=== PATIENT | male | born 1970 | race Caucasian/White ===

== ENCOUNTER → 2016-12-11 | Outpatient (CLI) | payer OTHER | LOC: KOH-I 13:00 | DX: S83.242D Other tear of medial meniscus, current injury, left knee, subsequent encounter (principal); S82.832D Other fracture of upper and lower end of left fibula, subsequent encounter for closed fracture with routine healing; S83.412D Sprain of medial collateral ligament of left knee, subsequent encounter | CPT/HCPCS: 73721 ==

== ENCOUNTER 2020-08-01 16:22 | Emergency (ER) | payer OTHER ==
[~2020-08-01 16:22] MED LIST: AEROCHAMBER1 EA XX; ALBUTEROL2.5 MG/3 M INH; ASPIRIN EC81 MG PO; AZITHROMYCIN250 MG PO; BACTRIM DS TAB1 EACH PO; BUSPAR 10MG10 MG PO; BUTALB-ACETAMI1 EAC1 PO; CLEOCIN HCL300 MG PO; COZAAR 50MG TAB50 MG PO; CYCLOBENZAPRINE5 MG PO; DOXEPIN HCL10 MG PO; FLONASE 0.05% N16 GM; FUROSEMIDE40 MG PO; HYDROCHLOROTHIA25 MG PO; HYDROCODON-ACE1 EAC4 PO; HYDROXYZINE HCL25 MG PO; IMDUR ER TAB 3030 MG PO; IPRAT-ALBUT 0.5-3 ML NEB; LASIX 40 MG TAB40 MG PO; LASIX40 MG PO; LEVAQUIN500 MG PO; LIPITOR40 MG PO; LOPRESSOR 25 MG25 MG PO; MEDROL DOSEPAK 24 MG PO; MELATONIN5 M2 PO; METFORMIN ER G500 MG PO; MIRTAZAPINE7.5 MG PO; PEPCID20 MG PO; PERCOCET 5/325 T1 EA PO; PREDNISONE10 MG PO; PREDNISONE20 MG PO; PROVENTIL HFA6.7 GM INH; RIZATRIPTAN10 MG PO; SYMBICORT 16010.2 GM INH; TESSALON PERLE100 MG PO; VENTOLIN HFA 66.7 GM INH; WELLBUTRIN XL300 M1 PO; ZESTRIL2.5 MG PO; ZOLOFT50 MG PO; ZYRTEC10 MG PO
[2020-08-01 16:40] LABS: HEMOGLOBIN 12.9 gm/dl (14.0-17.5); RED BLOOD COUNT 4.37 M/UL (4.20-5.50); WHITE BLOOD COUNT 9.4 K/UL (4.5-11.0)
[2020-08-01 17:14] LABS: BUN/CREATININE RATIO 14 (0-10)
[2020-08-01] MEDS ORDERED: PREDNISONE50 MG PO (20:37)
[2020-08-01] MEDS ORDERED: LEVOFLOXACIN750 MG PO (20:37)
[2020-12-31] MEDS ORDERED: NICOTINE PATCH1 EAC2 TD (18:36)
== END 2020-08-01 21:05 | disposition home or self-care (01) ==
LOC: ER1 16:22
PROVIDERS: Emergency Medicine
DX: J44.1 Chronic obstructive pulmonary disease with (acute) exacerbation (principal); E11.9 Type 2 diabetes mellitus without complications; I50.9 Heart failure, unspecified; F17.200 Nicotine dependence, unspecified, uncomplicated; Z88.1 Allergy status to other antibiotic agents; Z20.822 Contact with and (suspected) exposure to COVID-19
CPT/HCPCS: 36600; 71045; 80053; 82550; 82553; 82803; 83605; 83874; 83880; 84484; 85025; 85379; 85610; 85730; 87040; 93005; 96365; 96375; 99285; J1956; J2930; U0002

== ENCOUNTER 2020-08-29 02:51 | Emergency (ER) | payer OTHER ==
[~2020-08-29 02:51] MED LIST changes: +LEVOFLOXACIN750 MG PO; +PREDNISONE50 MG PO
[2020-08-29 03:09] LABS: RED BLOOD COUNT 4.92 M/UL (4.20-5.50); WHITE BLOOD COUNT 13.2 K/UL (4.5-11.0)
[2020-08-29 03:31] LABS: BUN/CREATININE RATIO 12 (0-10)
[2020-08-29] MEDS ORDERED: ACETAMINOPHEN500 MG PO (03:45)
[2020-08-29] MEDS ORDERED: LODINE CAP 300300 MG PO (03:46)
[2020-08-29] MEDS ORDERED: CLEOCIN HCL150 MG PO (03:46)
[2020-12-31] MEDS ORDERED: NICOTINE PATCH1 EAC2 TD (18:36)
[2021-02-12] MEDS ORDERED: LEVOFLOXACIN500 MG PO (10:36)
== END 2020-08-29 03:55 | disposition home or self-care (01) ==
LOC: ER1 02:51
PROVIDERS: Physician Assistant
DX: S80.812A Abrasion, left lower leg, initial encounter (principal); L03.116 Cellulitis of left lower limb; I11.0 Hypertensive heart disease with heart failure; I50.9 Heart failure, unspecified; J44.9 Chronic obstructive pulmonary disease, unspecified; F17.210 Nicotine dependence, cigarettes, uncomplicated; Z88.1 Allergy status to other antibiotic agents; W22.8XXA Striking against or struck by other objects, initial encounter
CPT/HCPCS: 36415; 80053; 85025; 85652; 86140; 96374; 99283

== ENCOUNTER 2020-09-26 22:38 | Emergency (ER) | payer OTHER ==
[~2020-09-26 22:38] MED LIST changes: +ACETAMINOPHEN500 MG PO; +CLEOCIN HCL150 MG PO; +LODINE CAP 300300 MG PO
[2020-09-26 23:33] LABS: HEMOGLOBIN 16.2 gm/dl (14.0-17.5); RED BLOOD COUNT 5.37 M/UL (4.20-5.50)
[2020-09-26 23:56] LABS: BUN/CREATININE RATIO 16 (0-10)
[2020-09-27] MEDS ORDERED: CLEOCIN HCL150 MG PO (02:40)
[2021-02-12] MEDS ORDERED: LEVOFLOXACIN500 MG PO (10:36)
== END 2020-09-27 03:20 | disposition home or self-care (01) ==
LOC: ER1 22:38
PROVIDERS: Physician Assistant
DX: L03.116 Cellulitis of left lower limb (principal); R79.1 Abnormal coagulation profile; I50.9 Heart failure, unspecified; J44.9 Chronic obstructive pulmonary disease, unspecified; F17.210 Nicotine dependence, cigarettes, uncomplicated; Z88.1 Allergy status to other antibiotic agents
CPT/HCPCS: 36415; 71045; 80053; 81001; 82550; 82553; 83874; 83880; 84484; 85025; 85379; 85610; 85730; 96365; 96372; 99285; J1650; Q9967

== ENCOUNTER 2020-10-05 16:11 | Emergency (ER) | payer OTHER ==
[2020-10-05 20:02] LABS: HEMOGLOBIN 16.8 gm/dl (14.0-17.5); RED BLOOD COUNT 5.59 M/UL (4.20-5.50); WHITE BLOOD COUNT 13.7 K/UL (4.5-11.0)
[2020-10-05 20:23] LABS: BUN/CREATININE RATIO 17 (0-10)
[2020-10-05] MEDS ORDERED: TORADOL 10 MG T10 MG PO (21:01)
[2021-02-12] MEDS ORDERED: LEVOFLOXACIN500 MG PO (10:36)
== END 2020-10-05 22:36 | disposition home or self-care (01) ==
LOC: ER1 16:11
PROVIDERS: Physician Assistant Medical
DX: S81.802D Unspecified open wound, left lower leg, subsequent encounter (principal); J44.9 Chronic obstructive pulmonary disease, unspecified; F17.210 Nicotine dependence, cigarettes, uncomplicated; Z86.16 Personal history of COVID-19; Z88.1 Allergy status to other antibiotic agents
CPT/HCPCS: 71046; 80053; 85025; 85652; 86140; 94664; 94760; 96372; 99284; J1885

== ENCOUNTER → 2020-10-13 | Outpatient (CLI) | payer OTHER ==
[~2020-10-13] MED LIST changes: +BACTRIM 400-801 EACH PO; +CRESTOR 10 MG T10 MG PO; +DOXYCYCLINE HY100 MG PO; +GABAPENTIN100 MG PO; +GLUCOPHAGE 500500 MG PO; +HUMALOG 10100 UNITS/ SC; +IBUPROFEN800 MG PO; +IMITREX50 MG PO; +IPRAT-ALBUT 0.5-3 ML INH; +ISOSORBIDE MONO60 MG PO; +KLONOPIN TAB 00.5 MG PO; +KLONOPIN0.5 MG PO; +LANTUS INS100 UTS/M1 SQ; +LEVOFLOXACIN500 MG PO; +LEXAPRO TAB 1010 MG PO; +METOPROLOL SUCC25 MG PO; +MINIPRES CAP 2 M2 MG PO; +MIRTAZAPINE45 MG PO; +MYCOSTATIN100000 UTS PO; +NICOTINE PATCH1 EACH TOP; +PRAZOSIN HCL2 MG PO; +SINEQUAN CAP 1010 MG PO; +SPIRIVA18 MCG INH; +TORADOL 10 MG T10 MG PO
== END ==
LOC: WCC 07:34
PROC: 2W1RX6Z Compression of Left Lower Leg using Pressure Dressing (ICD-10-PCS; principal; 2020-10-13)
PROC: 0JBP0ZZ Excision of Left Lower Leg Subcutaneous Tissue and Fascia, Open Approach (ICD-10-PCS; principal; 2020-10-13)
DX: I87.312 Chronic venous hypertension (idiopathic) with ulcer of left lower extremity (principal); L97.822 Non-pressure chronic ulcer of other part of left lower leg with fat layer exposed; I96 Gangrene, not elsewhere classified; E66.01 Morbid (severe) obesity due to excess calories; R73.03 Prediabetes; I11.0 Hypertensive heart disease with heart failure; I50.810 Right heart failure, unspecified; J44.9 Chronic obstructive pulmonary disease, unspecified; G47.30 Sleep apnea, unspecified; F17.210 Nicotine dependence, cigarettes, uncomplicated; Z88.1 Allergy status to other antibiotic agents; Z68.35 Body mass index [BMI] 35.0-35.9, adult
CPT/HCPCS: G0463

== ENCOUNTER → 2020-10-17 | Outpatient (CLI) | payer OTHER | LOC: WCC 12:01 | PROC: 2W1RX6Z Compression of Left Lower Leg using Pressure Dressing (ICD-10-PCS; principal; 2020-10-17) | DX: I96 Gangrene, not elsewhere classified (principal); L97.822 Non-pressure chronic ulcer of other part of left lower leg with fat layer exposed; J44.9 Chronic obstructive pulmonary disease, unspecified; G47.30 Sleep apnea, unspecified; I11.0 Hypertensive heart disease with heart failure; I50.9 Heart failure, unspecified ==

== ENCOUNTER → 2020-10-20 | Outpatient (CLI) | payer OTHER | LOC: WCC 08:53 | PROC: 2W1RX6Z Compression of Left Lower Leg using Pressure Dressing (ICD-10-PCS; principal; 2020-10-20) | PROC: 0JBP0ZZ Excision of Left Lower Leg Subcutaneous Tissue and Fascia, Open Approach (ICD-10-PCS; principal; 2020-10-20) | DX: I87.312 Chronic venous hypertension (idiopathic) with ulcer of left lower extremity (principal); L97.822 Non-pressure chronic ulcer of other part of left lower leg with fat layer exposed; I96 Gangrene, not elsewhere classified; I87.2 Venous insufficiency (chronic) (peripheral); R73.03 Prediabetes; I11.0 Hypertensive heart disease with heart failure; I50.810 Right heart failure, unspecified; J44.9 Chronic obstructive pulmonary disease, unspecified; G47.30 Sleep apnea, unspecified; F17.210 Nicotine dependence, cigarettes, uncomplicated; E66.01 Morbid (severe) obesity due to excess calories; Z68.35 Body mass index [BMI] 35.0-35.9, adult ==

== ENCOUNTER → 2020-10-25 | Outpatient (CLI) | payer OTHER | LOC: WCC 14:34 | DX: Z53.9 Procedure and treatment not carried out, unspecified reason (principal) ==

== ENCOUNTER 2020-11-08 17:00 | Emergency (ER) | payer OTHER ==
[~2020-11-08 17:00] MED LIST changes: -BACTRIM 400-801 EACH PO; -CRESTOR 10 MG T10 MG PO; -DOXYCYCLINE HY100 MG PO; -GABAPENTIN100 MG PO; -GLUCOPHAGE 500500 MG PO; -HUMALOG 10100 UNITS/ SC; -IBUPROFEN800 MG PO; -IMITREX50 MG PO; -IPRAT-ALBUT 0.5-3 ML INH; -ISOSORBIDE MONO60 MG PO; -KLONOPIN TAB 00.5 MG PO; -KLONOPIN0.5 MG PO; -LANTUS INS100 UTS/M1 SQ; -LEVOFLOXACIN500 MG PO; -LEXAPRO TAB 1010 MG PO; -METOPROLOL SUCC25 MG PO; -MINIPRES CAP 2 M2 MG PO; -MIRTAZAPINE45 MG PO; -MYCOSTATIN100000 UTS PO; -NICOTINE PATCH1 EACH TOP; -PRAZOSIN HCL2 MG PO; -SINEQUAN CAP 1010 MG PO; -SPIRIVA18 MCG INH
[2020-11-08 19:10] LABS: HEMOGLOBIN 15.3 gm/dl (14.0-17.5); RED BLOOD COUNT 5.22 M/UL (4.20-5.50); WHITE BLOOD COUNT 12.4 K/UL (4.5-11.0)
[2020-11-08 19:34] LABS: BUN/CREATININE RATIO 16 (0-10)
[2021-02-12] MEDS ORDERED: LEVOFLOXACIN500 MG PO (10:36)
== END 2020-11-08 21:55 | disposition home or self-care (01) ==
LOC: ER1 17:00
PROVIDERS: Student in an Organized Health Care Education/Training Program
DX: J44.9 Chronic obstructive pulmonary disease, unspecified (principal); R10.9 Unspecified abdominal pain; I50.9 Heart failure, unspecified; F17.210 Nicotine dependence, cigarettes, uncomplicated
CPT/HCPCS: 71046; 80053; 81001; 82550; 82553; 83605; 83690; 83874; 83880; 84484; 85025; 93005; 94664; 99285

== ENCOUNTER 2020-12-31 07:38 | Inpatient (IN) | payer OTHER ==
[~2020-12-31] VITALS: Ht 177.8 cm; Wt 117.9 kg
[2020-12-31 08:08] LABS: HEMOGLOBIN 13.8 gm/dl (14.0-17.5); RED BLOOD COUNT 4.67 M/UL (4.20-5.50); WHITE BLOOD COUNT 14.1 K/UL (4.5-11.0)
[2020-12-31 08:31] LABS: BUN/CREATININE RATIO 16 (0-10)
[2020-12-31] MEDS ORDERED: METOPROLOL SUCC25 MG PO (18:32)
[2020-12-31] MEDS ORDERED: MIRTAZAPINE45 MG PO (18:33)
[2020-12-31] MEDS ORDERED: KLONOPIN0.5 MG PO (18:33)
[2020-12-31] MEDS ORDERED: ISOSORBIDE MONO60 MG PO (18:34)
[2020-12-31] MEDS ORDERED: SPIRIVA18 MCG INH (18:35)
[2020-12-31] MEDS ORDERED: BUSPAR 10MG10 MG PO (18:35)
[2020-12-31] MEDS ORDERED: CRESTOR 10 MG T10 MG PO (18:35)
[2020-12-31] MEDS ORDERED: PRAZOSIN HCL2 MG PO (18:36)
[2020-12-31] MEDS ORDERED: IBUPROFEN800 MG PO (18:37)
[2021-01-01 06:16] LABS: HEMOGLOBIN 13.2 gm/dl (14.0-17.5); RED BLOOD COUNT 4.46 M/UL (4.20-5.50)
[2021-01-01 06:22] LABS: WHITE BLOOD COUNT 26.7 K/UL (4.5-11.0)
--- NOTE | 2021-01-01 13:53 | NUR ---
RECHECKED PATIENTS BLOOD GLUCOSE. AGAIN OVER 600. PHYSICIAN NOTIFIED. ORDERED ANOTHER 15 UNITS OF INSULINE. ALSO ORDERED NORMAL SALINE 2LITERS INFUSED AT 125ML/HOUR.
--- NOTE | 2021-01-01 13:56 | NUR ---
PATIENT EARLIER THIS MORNING INSISTED ON DRINKING A MOUNTAIN DEW SOFT DRINK. THE NURSE EDUCATED THE PATIENT ABOUT THE DANGERS AND TRIED TO GET THE PATIENT TO NOT DRINK THE SOFT DRINK WHEN HIS BLOOD GLUCOSE HAD BEEN SO HIGH (664 AT 0730 ON MORNING LABS). PATIENT INSISNTED AND STATED HE WOULD JUST GO GET ANOTHER ONE IF THE NURSE DIDN'T LET HIM HAVE THAT ONE.
[2021-01-02 06:14] LABS: HEMOGLOBIN 12.2 gm/dl (14.0-17.5); RED BLOOD COUNT 4.16 M/UL (4.20-5.50); WHITE BLOOD COUNT 22.1 K/UL (4.5-11.0)
[2021-01-02 08:31] LABS: BUN/CREATININE RATIO 23 (0-10)
--- NOTE | 2021-01-02 18:32 | NUR ---
PATIENT ACCIDENTALLY PULLED OUT HIS IV. RESOURCE THE DAY BEFORE MADE SEVERAL ATTMPTS BEFORE IV WAS SUCCESSFULLY STARTED. THERE IS NO RESOURCE NURSE TODAY. TWO DIFFERENT EXPERIENCED NURSES ON THE FLOOR MADE SEVERAL ATTEMPTS THIS AFTERNOON TO START A NEW IV. PROVIDER IS AWARE THAT CURRENTLY PATIENT HAS NO IV. MELODY HAS BEEN CALLED TWICE ABOUT THE SITUATION AND STATED SHE WOULD CALL ICU AND ER AND TRY TO HAVE SOMEONE PLACE AN ULTRA SOUND GIDED IV CANULA.
[2021-01-03 08:03] LABS: RED BLOOD COUNT 4.43 M/UL (4.20-5.50)
[2021-01-03 08:04] LABS: WHITE BLOOD COUNT 15.8 K/UL (4.5-11.0)
[2021-01-03 11:50] LABS: HEMOGLOBIN 12.1 gm/dl (14.0-17.5); RED BLOOD COUNT 4.09 M/UL (4.20-5.50); WHITE BLOOD COUNT 13.8 K/UL (4.5-11.0)
[2021-01-05 04:00] LABS: HEMOGLOBIN 12.8 gm/dl (14.0-17.5); RED BLOOD COUNT 4.36 M/UL (4.20-5.50); WHITE BLOOD COUNT 16.4 K/UL (4.5-11.0)
[2021-01-06 03:39] LABS: HEMOGLOBIN 13.1 gm/dl (14.0-17.5); RED BLOOD COUNT 4.43 M/UL (4.20-5.50); WHITE BLOOD COUNT 15.4 K/UL (4.5-11.0)
[2021-01-06 04:20] LABS: BUN/CREATININE RATIO 24 (0-10)
[2021-01-07 06:31] LABS: BUN/CREATININE RATIO 28 (0-10)
[2021-01-08 06:10] LABS: HEMOGLOBIN 13.3 gm/dl (14.0-17.5); RED BLOOD COUNT 4.46 M/UL (4.20-5.50); WHITE BLOOD COUNT 17.6 K/UL (4.5-11.0)
[2021-01-08 06:55] LABS: BUN/CREATININE RATIO 28 (0-10)
[2021-01-09 06:39] LABS: BUN/CREATININE RATIO 29 (0-10)
[2021-01-09] MEDS ORDERED: KLONOPIN0.5 MG PO (15:37)
[2021-01-11] MEDS ORDERED: PERCOCET 5/325 T1 EA PO (09:06)
[2021-01-11] MEDS ORDERED: GABAPENTIN100 MG PO (09:06)
[2021-01-11] MEDS ORDERED: HUMALOG 10100 UNITS/ SC (09:06)
[2021-01-11] MEDS ORDERED: HYDROXYZINE HCL25 MG PO (09:06)
[2021-01-11] MEDS ORDERED: MYCOSTATIN100000 UTS PO (09:06)
[2021-01-11] MEDS ORDERED: FUROSEMIDE40 MG PO (09:06)
[2021-01-11] MEDS ORDERED: LANTUS INS100 UTS/M1 SQ (09:06)
[2021-01-11 09:29] LABS: HEMOGLOBIN 13.7 gm/dl (14.0-17.5); RED BLOOD COUNT 4.56 M/UL (4.20-5.50); WHITE BLOOD COUNT 17.3 K/UL (4.5-11.0)
[2021-01-11] MEDS ORDERED: DOXYCYCLINE HY100 MG PO (11:00)
--- NOTE | 2021-01-11 13:57 | NUR ---
REPORT CALLED TO [facility] AT THIS TIME.
--- NOTE | 2021-01-11 16:19 | NUR ---
EMS ARRIVED TO [place] OF FACULTY PATIENT AND PATIENT WAS IN THE SHOWER. EMS THEN REFUSED TO TAKE PATIENT BEACUASE THE PATIENT CAN AMBULATE. PROVIDER MADE AWARE. UTILITY LOCATOR MADE AWARE. CM MADE AWARE. CM STATES THAT THEY WILL CALL [facility] AND SEE IF THEY CAN GET HIM A RIDE THAT WAY.
[2021-02-12] MEDS ORDERED: LEVOFLOXACIN500 MG PO (10:36)
== END 2021-01-11 22:04 | DRG 177 ==
LOC: ER1 07:38 → CDU 12:34 → MED SURG 4 12:34
PROVIDERS: Emergency Medicine; Internal Medicine; Physician Assistant; ADMIT Internal Medicine
DX: J69.0 Pneumonitis due to inhalation of food and vomit (principal); J96.01 Acute respiratory failure with hypoxia; J96.02 Acute respiratory failure with hypercapnia; J44.1 Chronic obstructive pulmonary disease with (acute) exacerbation; N17.9 Acute kidney failure, unspecified; J44.0 Chronic obstructive pulmonary disease with (acute) lower respiratory infection; J96.11 Chronic respiratory failure with hypoxia; E66.01 Morbid (severe) obesity due to excess calories; D72.829 Elevated white blood cell count, unspecified; G47.33 Obstructive sleep apnea (adult) (pediatric); I11.0 Hypertensive heart disease with heart failure; I50.9 Heart failure, unspecified; E11.65 Type 2 diabetes mellitus with hyperglycemia; Z79.4 Long term (current) use of insulin; Z86.16 Personal history of COVID-19; Z72.0 Tobacco use; Z88.8 Allergy status to other drugs, medicaments and biological substances; Z80.1 Family history of malignant neoplasm of trachea, bronchus and lung; Z68.35 Body mass index [BMI] 35.0-35.9, adult
CPT/HCPCS: 36415; 36600; 71045; 71046; 71260; 74230; 80048; 80053; 81001; 82550; 82553; 82803; 82962; 83036; 83605; 83690; 83735; 83880; 84484; 85025; 85027; 87040; 92610; 92611-GN; 94640; 94664; 94760; 96374; 97116-GP-CQ; 97161; 99285; J0456; J1650; J1940; J2543; J2920; J2930; J7030; Q9967; U0002

== ENCOUNTER 2021-02-15 22:10 | Observation (INO) | payer OTHER ==
[~2021-02-15] VITALS: Ht 177.8 cm; Wt 122.5 kg
[~2021-02-15 22:10] MED LIST changes: +CRESTOR 10 MG T10 MG PO; +DOXYCYCLINE HY100 MG PO; +GABAPENTIN100 MG PO; +HUMALOG 10100 UNITS/ SC; +IBUPROFEN800 MG PO; +ISOSORBIDE MONO60 MG PO; +KLONOPIN0.5 MG PO; +LANTUS INS100 UTS/M1 SQ; +LEVOFLOXACIN500 MG PO; +METOPROLOL SUCC25 MG PO; +MIRTAZAPINE45 MG PO; +MYCOSTATIN100000 UTS PO; +PRAZOSIN HCL2 MG PO; +SPIRIVA18 MCG INH
[2021-02-15 23:02] LABS: RED BLOOD COUNT 4.26 M/UL (4.20-5.50); WHITE BLOOD COUNT 12.4 K/UL (4.5-11.0)
[2021-02-15 23:22] LABS: BUN/CREATININE RATIO 15 (0-10)
[2021-02-16] MEDS ORDERED: HYDROXYZINE HCL25 MG PO ×2 (06:33→09:56)
[2021-02-16] MEDS ORDERED: GLUCOPHAGE 500500 MG PO (09:56)
[2021-02-16] MEDS ORDERED: KLONOPIN TAB 00.5 MG PO (09:58)
[2021-02-16] MEDS ORDERED: IPRAT-ALBUT 0.5-3 ML INH (09:58)
[2021-02-16] MEDS ORDERED: MINIPRES CAP 2 M2 MG PO (09:59)
[2021-02-16] MEDS ORDERED: GABAPENTIN100 MG PO (10:00)
[2021-02-16] MEDS ORDERED: PERCOCET 5/325 T1 EA PO (10:01)
[2021-02-16] MEDS ORDERED: SINEQUAN CAP 1010 MG PO (10:35)
[2021-02-16] MEDS ORDERED: LEXAPRO TAB 1010 MG PO (10:37)
[2021-02-16] MEDS ORDERED: IMITREX50 MG PO (10:38)
[2021-02-16] MEDS ORDERED: IBUPROFEN800 MG PO (10:39)
[2021-02-16] MEDS ORDERED: VENTOLIN HFA 66.7 GM INH (10:43)
[2021-02-16] MEDS ORDERED: BACTRIM 400-801 EACH PO (15:32)
--- NOTE | 2021-02-16 16:16 | NUR ---
ROOM AIR SAT 94%
[2021-02-16] MEDS ORDERED: NICOTINE PATCH1 EACH TOP (18:36)
--- NOTE | 2021-02-16 20:20 | NUR ---
UPON COMPLETION OF IV VANCOMYCIN AROUND 2014, THE PATIENT BECAME VERY UPSET ABOUT BEING DISCHARGED HOME. HE STATES HE HAS ABDOMINAL PAIN AND DIARRHEA. I DID WITNESS EPISODE OF DIARRHEA. HE STATED HE WOULD LIKE TO SPEAK TO ADMINISTRATION. CALL OUT TO HOSPITALIST. HAULPAK DRIVER MAY NOTIFIED. HOUSE STATED IT WOULD BE UP TO THE PHYSICIAN.
--- NOTE | 2021-02-16 20:30 | NUR ---
DISCUSSED WITH DR HU AND SHE STATED TO HOLD PATIENT DISCHARGE AND COLLECT A GI BIOFIRE. ALL INFO RELAYED TO PATIENT WITH GOOD UNDERSTANDING NOTED.
[2021-02-17 04:22] LABS: HEMOGLOBIN 12.8 gm/dl (14.0-17.5); RED BLOOD COUNT 4.26 M/UL (4.20-5.50); WHITE BLOOD COUNT 11.8 K/UL (4.5-11.0)
--- NOTE | 2021-02-17 13:44 | NUR ---
Upon patients request he has been on 02 via nasal cannula at 3l lters since he has been here. His sitting room air sat it 90%. Upon walking patient down the [place]aines and back it dropped down to 78%. It took one minute to get back to 90% without supllmenetal 02. The patient has supplemental 02 at home, but no one to bring it to him for travel. He will have acess to the 02 if he needs it upon arrival to his home. patient was given prtable pulse oximeter. I discussed all this with Dr. Bloom and she said to go ahead and diischarge him.
== END 2021-02-17 18:11 | disposition home or self-care (01) ==
LOC: ER1 22:10 → MED SURG 4 02-16 08:31 → CDU 02-16 08:31 → MED SURG 4 02-16 09:25
PROVIDERS: Physician Assistant; Physician Assistant Medical; ADMIT Internal Medicine
DX: I87.8 Other specified disorders of veins (principal); L03.116 Cellulitis of left lower limb; I89.0 Lymphedema, not elsewhere classified; J44.9 Chronic obstructive pulmonary disease, unspecified; J96.11 Chronic respiratory failure with hypoxia; F41.9 Anxiety disorder, unspecified; G47.33 Obstructive sleep apnea (adult) (pediatric); I11.0 Hypertensive heart disease with heart failure; I50.32 Chronic diastolic (congestive) heart failure; R94.31 Abnormal electrocardiogram [ECG] [EKG]; Z79.82 Long term (current) use of aspirin; Z79.899 Other long term (current) drug therapy; Z88.1 Allergy status to other antibiotic agents; Z91.19 Patient's noncompliance with other medical treatment and regimen; Z20.822 Contact with and (suspected) exposure to COVID-19; Z87.891 Personal history of nicotine dependence
CPT/HCPCS: 36415; 71045; 80048; 80053; 82550; 82553; 83735; 83874; 83880; 84484; 85025; 85027; 87070; 87077; 87186; 87205; 93005; 93971; 94664; 96374; 96375; 96376; 99285; G0378; J3370; J7070; U0002

== ENCOUNTER 2021-03-12 11:20 | Emergency (ER) | payer OTHER ==
[~2021-03-12 11:20] MED LIST changes: +BACTRIM 400-801 EACH PO; +GLUCOPHAGE 500500 MG PO; +IMITREX50 MG PO; +IPRAT-ALBUT 0.5-3 ML INH; +KLONOPIN TAB 00.5 MG PO; +LEXAPRO TAB 1010 MG PO; +MINIPRES CAP 2 M2 MG PO; +NICOTINE PATCH1 EACH TOP; +SINEQUAN CAP 1010 MG PO
[2021-03-12 13:01] LABS: HEMOGLOBIN 13.8 gm/dl (14.0-17.5); RED BLOOD COUNT 4.85 M/UL (4.20-5.50); WHITE BLOOD COUNT 13.4 K/UL (4.5-11.0)
[2021-03-12 13:07] LABS: BUN/CREATININE RATIO 14 (0-10)
[2021-03-12] MEDS ORDERED: MUPIROCIN30 GM TP (13:36)
[2021-03-12] MEDS ORDERED: BACTRIM DS TAB1 EACH PO (13:36)
== END 2021-03-12 14:12 | disposition home or self-care (01) ==
LOC: ER1 11:20
PROVIDERS: Emergency Medicine
DX: L03.115 Cellulitis of right lower limb (principal); L03.116 Cellulitis of left lower limb; I10 Essential (primary) hypertension; J44.9 Chronic obstructive pulmonary disease, unspecified; Z88.1 Allergy status to other antibiotic agents
CPT/HCPCS: 80053; 83605; 85025; 85652; 86140; 99283

== ENCOUNTER 2021-04-27 22:38 | Observation (INO) | payer OTHER ==
[~2021-04-27] VITALS: Ht 177.8 cm; Wt 122.5 kg
[~2021-04-27 22:38] MED LIST changes: -CRESTOR 10 MG T10 MG PO; -KLONOPIN TAB 00.5 MG PO; -METOPROLOL SUCC25 MG PO; -MIRTAZAPINE45 MG PO; +MUPIROCIN30 GM TP
[2021-04-27 23:15] LABS: HEMOGLOBIN 14.3 gm/dl (14.0-17.5); RED BLOOD COUNT 4.99 M/UL (4.20-5.50); WHITE BLOOD COUNT 13.5 K/UL (4.5-11.0)
[2021-04-27 23:45] LABS: BUN/CREATININE RATIO 12 (0-10)
[2021-04-28] MEDS ORDERED: BACTRIM DS TAB1 EACH PO (08:52)
[2021-04-28] MEDS ORDERED: IPRAT-ALBUT 0.5-3 ML INH (08:58)
[2021-04-28] MEDS ORDERED: IBU800 MG PO (09:10)
[2021-04-28] MEDS ORDERED: HYDROXYZINE HCL25 MG PO (09:56)
[2021-04-28] MEDS ORDERED: KLONOPIN TAB 00.5 MG PO (09:58)
[2021-04-28] MEDS ORDERED: METOPROLOL TART25 MG PO (18:32)
[2021-04-28] MEDS ORDERED: MIRTAZAPINE45 MG PO (18:33)
[2021-04-28] MEDS ORDERED: CRESTOR20 MG PO (18:35)
--- NOTE | 2021-04-29 03:00 | NUR ---
PT ORDERED FOOD FROM [employer] AND HAD DELIVERED. AMBULATED TO FRONT OF HOSPITAL TO GET FOOD WITH WHEELCHAIR FOR WALKING. PTS IV IN RAC CAME LOOSE AND WAS BLEEDING. NEW IV WAS PLACED IN RHAND. PT CURRENTLY SLEEPING IN CHAIR IN ROOM STATES "I SLEEP IN CHAIR AT HOME ITS MORE COMFORTABLE" THIS RN EDUCATED PT ON ELEVATING LEGS TO REDUCE SWELLING. RN REDRESSED BOTH LEGS WITH GAUZE KERLIX. NO OTHER NEEDS FROM RN AT THIS TIME WCTM
[2021-04-29 07:34] LABS: HEMOGLOBIN 14.6 gm/dl (14.0-17.5); RED BLOOD COUNT 4.91 M/UL (4.20-5.50); WHITE BLOOD COUNT 10.7 K/UL (4.5-11.0)
[2021-04-29 08:22] LABS: BUN/CREATININE RATIO 20 (0-10)
[2021-04-29] MEDS ORDERED: GLUCOPHAGE 500500 MG PO (10:05)
[2021-04-29] MEDS ORDERED: DIABETA 2.5 MG2.5 MG PO (10:05)
[2021-04-29] MEDS ORDERED: GLUCAGEN1 MG/1 ML IM (10:05)
[2021-04-29] MEDS ORDERED: GLUTOSE 1537.5 GM PO (10:05)
[2021-04-29] MEDS ORDERED: BACTRIM DS TAB1 EACH PO (10:05)
[2021-04-29] MEDS ORDERED: GLUCOTROL 10 MG10 MG PO (11:40)
--- NOTE | 2021-04-29 12:48 | NUR ---
PTS BLOOD SUGAR IS HIGH, DR. BEY NOTIFIED AND STATES GIVE LANTUS 25 UNITS ONE TIME DOSE AND 10 UNITS HUMALOG AND RECHECK IN 2 HOURS. KRIS CARPENTER STATES PT CAN BE DISCHARGED HOME WHEN BLOOD SUGAR IS IN 200'S RANGE.
--- NOTE | 2021-04-29 17:35 | NUR ---
REPORTED TO DR BEY PTS BLOOD SUGAR IS 319. DR. BEY STATES PT CAN GO HOME AND FOLLOW UP WITH FAMILY MD IN AM FOR FURTHER MANAGEMENT.
== END 2021-04-29 18:23 | disposition home or self-care (01) ==
LOC: ER1 22:38 → CDU 04-28 02:02 → M/S 04-28 02:02 → MED SURG 4 04-28 08:53 → M/S 04-28 17:04
PROVIDERS: Physician Assistant; Physician Assistant Medical; ADMIT Internal Medicine
DX: I87.8 Other specified disorders of veins (principal); L03.116 Cellulitis of left lower limb; L03.115 Cellulitis of right lower limb; R59.1 Generalized enlarged lymph nodes; E11.9 Type 2 diabetes mellitus without complications; I11.0 Hypertensive heart disease with heart failure; I50.22 Chronic systolic (congestive) heart failure; J44.9 Chronic obstructive pulmonary disease, unspecified; J96.11 Chronic respiratory failure with hypoxia; J96.12 Chronic respiratory failure with hypercapnia; E66.2 Morbid (severe) obesity with alveolar hypoventilation; G89.29 Other chronic pain; F17.200 Nicotine dependence, unspecified, uncomplicated; Z91.19 Patient's noncompliance with other medical treatment and regimen; Z20.822 Contact with and (suspected) exposure to COVID-19; Z88.1 Allergy status to other antibiotic agents; Z79.82 Long term (current) use of aspirin; Z79.899 Other long term (current) drug therapy
CPT/HCPCS: 71045; 80048; 80053; 82550; 82553; 82962; 83036; 83605; 83735; 83874; 83880; 84484; 85025; 85027; 87040; 93005; 94664; 94760; 96374; 96375; 96376; 99285; G0378; J1940; J3370; J7070; Q9967; U0002

== ENCOUNTER 2021-06-07 17:23 | Inpatient (IN) | payer OTHER ==
[~2021-06-07] VITALS: Ht 177.8 cm; Wt 122.5 kg
[~2021-06-07 17:23] MED LIST changes: +CRESTOR20 MG PO; +DIABETA 2.5 MG2.5 MG PO; +GLUCAGEN1 MG/1 ML IM; +GLUCOTROL 10 MG10 MG PO; +GLUTOSE 1537.5 GM PO; +IBU800 MG PO; +KLONOPIN TAB 00.5 MG PO; +METOPROLOL TART25 MG PO; +MIRTAZAPINE45 MG PO
[2021-06-07 18:03] LABS: HEMOGLOBIN 15.9 gm/dl (14.0-17.5); RED BLOOD COUNT 5.47 M/UL (4.20-5.50); WHITE BLOOD COUNT 16.6 K/UL (4.5-11.0)
[2021-06-07 18:33] LABS: BUN/CREATININE RATIO 18 (0-10)
[2021-06-07 19:25] LABS: BORDETELLA PARAPERTUSSIS Not Detected (Not Detectd); BORDETELLA PERTUSSIS Not Detected (Not Detectd); CHLAMYDIA PNEUMONIAE Not Detected (Not Detectd); CORONAVIRUS HKU1 Not Detected (Not Detectd); CORONAVIRUS NL63 Not Detected (Not Detectd); CORONAVIRUS OC43 Not Detected (Not Detectd); CORONOAVIRUS 229E Not Detected (Not Detectd); HUMAN METAPNEUMOVIRUS Not Detected (Not Detectd); HUMAN RHINOVIRUS/ENTEROVIRUS Not Detected (Not Detectd); INFLUENZA A Not Detected (Not Detectd); INFLUENZA B Not Detected (Not Detectd); MYCOPLASMA PNEUMONIAE Not Detected (Not Detectd); PARAINFLUENZA VIRUS 1 Not Detected (Not Detectd); PARAINFLUENZA VIRUS 2 Not Detected (Not Detectd); PARAINFLUENZA VIRUS 3 Not Detected (Not Detectd); PARAINFLUENZA VIRUS 4 Not Detected (Not Detectd); RESPIRATORY SYNCYTIAL VIRUS Not Detected (Not Detectd)
[2021-06-07 20:23] LABS: SARS-CoV-2 NOT DETECTED (Not Detectd)
[2021-06-07] MEDS ORDERED: NEURONTIN300 MG PO (23:00)
[2021-06-08 06:19] LABS: HEMOGLOBIN 16.6 gm/dl (14.0-17.5); RED BLOOD COUNT 5.78 M/UL (4.20-5.50); WHITE BLOOD COUNT 16.5 K/UL (4.5-11.0)
[2021-06-08 06:47] LABS: BUN/CREATININE RATIO 21 (0-10)
[2021-06-11 08:49] LABS: RED BLOOD COUNT 5.01 M/UL (4.20-5.50); WHITE BLOOD COUNT 13.5 K/UL (4.5-11.0)
[2021-06-11 08:52] LABS: HEMOGLOBIN 13.8 gm/dl (14.0-17.5)
[2021-06-11 09:25] LABS: BUN/CREATININE RATIO 29 (0-10)
[2021-06-12 09:15] LABS: BUN/CREATININE RATIO 21 (0-10)
[2021-06-13 06:57] LABS: HEMOGLOBIN 13.8 gm/dl (14.0-17.5); RED BLOOD COUNT 4.86 M/UL (4.20-5.50)
[2021-06-13 07:52] LABS: BUN/CREATININE RATIO 20 (0-10)
[2021-06-13] MEDS ORDERED: GLUCOPHAGE 500500 MG PO (11:19)
[2021-06-13] MEDS ORDERED: PREDNISONE 20 M20 MG PO (11:19)
[2021-06-13] MEDS ORDERED: LEVOFLOXACIN750 MG PO (11:20)
== END 2021-06-13 13:45 | disposition home or self-care (01) | DRG 871 ==
LOC: ER1 17:23 → MED SURG 4 20:52 → CDU 20:52 → MED SURG 4 22:34
PROVIDERS: Internal Medicine; Preventive Medicine Occupational Medicine; ADMIT Internal Medicine
PROC: 5A09457 Assistance with Respiratory Ventilation, 24-96 Consecutive Hours, Continuous Positive Airway Pressure (ICD-10-PCS; principal; 2021-06-08)
DX: A41.9 Sepsis, unspecified organism (principal); J96.21 Acute and chronic respiratory failure with hypoxia; Z20.822 Contact with and (suspected) exposure to COVID-19; J96.22 Acute and chronic respiratory failure with hypercapnia; J18.9 Pneumonia, unspecified organism; J44.1 Chronic obstructive pulmonary disease with (acute) exacerbation; I50.22 Chronic systolic (congestive) heart failure; E66.2 Morbid (severe) obesity with alveolar hypoventilation; N17.9 Acute kidney failure, unspecified; I13.0 Hypertensive heart and chronic kidney disease with heart failure and stage 1 through stage 4 chronic kidney disease, or unspecified chronic kidney disease; E11.65 Type 2 diabetes mellitus with hyperglycemia; E11.22 Type 2 diabetes mellitus with diabetic chronic kidney disease; F17.210 Nicotine dependence, cigarettes, uncomplicated; I07.1 Rheumatic tricuspid insufficiency; I27.81 Cor pulmonale (chronic); I87.8 Other specified disorders of veins; I45.10 Unspecified right bundle-branch block; G47.33 Obstructive sleep apnea (adult) (pediatric); Z79.4 Long term (current) use of insulin; Z80.1 Family history of malignant neoplasm of trachea, bronchus and lung; Z82.5 Family history of asthma and other chronic lower respiratory diseases; Z91.14 Patient's other noncompliance with medication regimen; Z88.1 Allergy status to other antibiotic agents; Z79.01 Long term (current) use of anticoagulants; Z79.82 Long term (current) use of aspirin; Z68.38 Body mass index [BMI] 38.0-38.9, adult
CPT/HCPCS: 36415; 36600; 71045; 80048; 80053; 81001; 82009; 82550; 82553; 82803; 82962; 83036; 83605; 83690; 83735; 83874; 83880; 84484; 85025; 85652; 86140; 87040; 87070; 87086; 87205; 87633; 93005; 94640; 94660; 94664; 94760; 96374; 99285; J1650; J1940; J1956; J2060; J2543; J2920; J2930

== ENCOUNTER 2021-06-17 16:33 | Emergency (ER) | payer OTHER ==
[~2021-06-17 16:33] MED LIST changes: +NEURONTIN300 MG PO; +PREDNISONE 20 M20 MG PO
[2021-06-17 17:23] LABS: HEMOGLOBIN 14.9 gm/dl (14.0-17.5); RED BLOOD COUNT 5.13 M/UL (4.20-5.50); WHITE BLOOD COUNT 14.4 K/UL (4.5-11.0)
[2021-06-17 17:47] LABS: BUN/CREATININE RATIO 17 (0-10)
[2021-06-17] MEDS ORDERED: DOXYCYCLINE HY100 MG PO (19:45)
[2021-06-17] MEDS ORDERED: PREDNISONE20 MG PO (19:45)
[2021-06-17] MEDS ORDERED: BENZONATATE100 MG PO (19:45)
== END 2021-06-17 20:55 | disposition home or self-care (01) ==
LOC: ER1 16:33
PROVIDERS: Family Medicine
DX: I11.0 Hypertensive heart disease with heart failure (principal); I50.32 Chronic diastolic (congestive) heart failure; E11.9 Type 2 diabetes mellitus without complications; J44.9 Chronic obstructive pulmonary disease, unspecified; F17.200 Nicotine dependence, unspecified, uncomplicated; E66.01 Morbid (severe) obesity due to excess calories; J96.11 Chronic respiratory failure with hypoxia; Z20.822 Contact with and (suspected) exposure to COVID-19; Z88.8 Allergy status to other drugs, medicaments and biological substances
CPT/HCPCS: 36600; 71045; 80053; 82550; 82553; 82803; 83605; 83874; 83880; 84484; 85025; 93005; 94664; 96374; 96375; 99285; J1940; J2930; U0002

== ENCOUNTER → 2021-07-01 | Outpatient (CLI) | payer OTHER ==
[~2021-07-01] MED LIST changes: +BENZONATATE100 MG PO
== END ==
LOC: SLEEP 09:58
DX: G47.33 Obstructive sleep apnea (adult) (pediatric) (principal)
CPT/HCPCS: 95810

== ENCOUNTER 2021-07-23 10:51 | Inpatient (IN) | payer OTHER ==
[~2021-07-23] VITALS: Ht 180.3 cm; Wt 122.5 kg
[~2021-07-23 10:51] MED LIST changes: -IMITREX50 MG PO; -MIRTAZAPINE45 MG PO
[2021-07-23 13:27] LABS: BUN/CREATININE RATIO 15 (0-10)
[2021-07-23 15:49] LABS: HEMOGLOBIN 15.4 gm/dl (14.0-17.5); RED BLOOD COUNT 5.35 M/UL (4.20-5.50); WHITE BLOOD COUNT 15.5 K/UL (4.5-11.0)
[2021-07-24 03:46] LABS: RED BLOOD COUNT 5.22 M/UL (4.20-5.50); WHITE BLOOD COUNT 18.1 K/UL (4.5-11.0)
[2021-07-24 03:52] LABS: BUN/CREATININE RATIO 22 (0-10)
[2021-07-24] MEDS ORDERED: HYDROXYZINE HCL25 MG PO (09:56)
[2021-07-24] MEDS ORDERED: IMITREX100 MG PO (10:38)
[2021-07-24 13:51] LABS: BUN/CREATININE RATIO 24 (0-10)
[2021-07-24] MEDS ORDERED: MIRTAZAPINE45 MG PO (18:33)
[2021-07-24] MEDS ORDERED: BUSPIRONE HCL15 MG PO (18:35)
[2021-07-24] MEDS ORDERED: IBUPROFEN800 MG PO (18:53)
[2021-07-24] MEDS ORDERED: JARDIANCE25 MG PO (18:54)
[2021-07-24] MEDS ORDERED: ISOSORBIDE MONO60 MG PO (18:56)
[2021-07-24] MEDS ORDERED: COZAAR 50MG TAB50 MG PO (18:57)
[2021-07-24] MEDS ORDERED: GLUCOPHAGE 500500 MG PO (19:00)
[2021-07-24] MEDS ORDERED: NICOTINE PATCH1 EACH TOP (19:02)
[2021-07-24] MEDS ORDERED: DAILY VITE1 EACH PO (19:11)
[2021-07-25 05:51] LABS: HEMOGLOBIN 13.6 gm/dl (14.0-17.5)
[2021-07-25 05:52] LABS: RED BLOOD COUNT 4.69 M/UL (4.20-5.50); WHITE BLOOD COUNT 24.5 K/UL (4.5-11.0)
[2021-07-25 06:40] LABS: BUN/CREATININE RATIO 30 (0-10)
--- NOTE | 2021-07-25 11:14 | NUR ---
patient had a critical glucose reading of 538. MD aware, insulin ordered. will continue to observe.
[2021-07-26 05:50] LABS: HEMOGLOBIN 14.4 gm/dl (14.0-17.5); RED BLOOD COUNT 5.03 M/UL (4.20-5.50); WHITE BLOOD COUNT 19.8 K/UL (4.5-11.0)
[2021-07-26 06:10] LABS: BUN/CREATININE RATIO 32 (0-10)
[2021-07-27 06:51] LABS: HEMOGLOBIN 14.2 gm/dl (14.0-17.5); RED BLOOD COUNT 4.98 M/UL (4.20-5.50); WHITE BLOOD COUNT 14.9 K/UL (4.5-11.0)
[2021-07-27 07:13] LABS: BUN/CREATININE RATIO 29 (0-10)
[2021-07-27] MEDS ORDERED: GLUCOPHAGE 850850 MG PO (12:12)
[2021-07-27] MEDS ORDERED: CRESTOR 10 MG T10 MG PO (12:12)
[2021-07-27] MEDS ORDERED: BROVANA15 MCG/2 M NEB (12:12)
[2021-07-27] MEDS ORDERED: BENZONATATE100 MG PO (12:12)
[2021-07-27] MEDS ORDERED: BUDESONIDE0.5 MG/2 M NEB (12:12)
[2021-07-27] MEDS ORDERED: LANTUS SOL100 UNIT/1 SQ (12:12)
[2021-07-27] MEDS ORDERED: NOVOLOG FL100 UNIT/1 SC (12:17)
[2021-07-27] MEDS ORDERED: LEVOFLOXACIN750 MG PO (12:21)
[2021-07-27] MEDS ORDERED: AEROECLIPSE II1 EACH INH (12:22)
[2021-07-27] MEDS ORDERED: MILLIPRED5 MG PO (13:19)
== END 2021-07-27 15:01 | disposition home health service (06) | DRG 871 ==
LOC: ER1 10:51 → CDU 16:42 → M/S 07-24 17:12
PROVIDERS: Emergency Medicine; ADMIT Internal Medicine
PROC: B24BZZZ Ultrasonography of Heart with Aorta (ICD-10-PCS; principal; 2021-07-24)
PROC: 5A09357 Assistance with Respiratory Ventilation, Less than 24 Consecutive Hours, Continuous Positive Airway Pressure (ICD-10-PCS; 2021-07-24)
DX: A41.9 Sepsis, unspecified organism (principal); J18.9 Pneumonia, unspecified organism; J96.21 Acute and chronic respiratory failure with hypoxia; J44.1 Chronic obstructive pulmonary disease with (acute) exacerbation; J44.0 Chronic obstructive pulmonary disease with (acute) lower respiratory infection; I50.32 Chronic diastolic (congestive) heart failure; E87.1 Hypo-osmolality and hyponatremia; Z20.822 Contact with and (suspected) exposure to COVID-19; R65.20 Severe sepsis without septic shock; I87.8 Other specified disorders of veins; I27.81 Cor pulmonale (chronic); F17.210 Nicotine dependence, cigarettes, uncomplicated; E66.01 Morbid (severe) obesity due to excess calories; I11.0 Hypertensive heart disease with heart failure; G47.33 Obstructive sleep apnea (adult) (pediatric); E11.649 Type 2 diabetes mellitus with hypoglycemia without coma; F32.A Depression, unspecified; E87.5 Hyperkalemia; E78.5 Hyperlipidemia, unspecified; Z99.81 Dependence on supplemental oxygen; Z86.16 Personal history of COVID-19; Z71.6 Tobacco abuse counseling; Z79.4 Long term (current) use of insulin; Z88.1 Allergy status to other antibiotic agents; Z68.37 Body mass index [BMI] 37.0-37.9, adult; Z79.01 Long term (current) use of anticoagulants; Z79.82 Long term (current) use of aspirin
CPT/HCPCS: ECHO; 36415; 36600; 71045; 80048; 80053; 80202; 81001; 82550; 82553; 82728; 82803; 82962; 83605; 83690; 83735; 83880; 84100; 84484; 85025; 85379; 85610; 85730; 86140; 87040; 93005; 93306; 94640; 94660; 94664; 94760; 96374; 99285; G0378; J1650; J1940; J2185; J2930; J3370; J7030; J7070; U0002

== ENCOUNTER 2021-07-28 15:12 | Inpatient (IN) | payer OTHER ==
[~2021-07-28] VITALS: Ht 177.8 cm; Wt 122.5 kg
[~2021-07-28 15:12] MED LIST changes: +AEROECLIPSE II1 EACH INH; +BROVANA15 MCG/2 M NEB; +BUDESONIDE0.5 MG/2 M NEB; +BUSPIRONE HCL15 MG PO; +CRESTOR 10 MG T10 MG PO; +DAILY VITE1 EACH PO; +GLUCOPHAGE 850850 MG PO; +IMITREX100 MG PO; +JARDIANCE25 MG PO; +LANTUS SOL100 UNIT/1 SQ; +MILLIPRED5 MG PO; +MIRTAZAPINE45 MG PO; +NOVOLOG FL100 UNIT/1 SC
[2021-07-28 16:32] LABS: BUN/CREATININE RATIO 31 (0-10)
[2021-07-28 16:53] LABS: HEMOGLOBIN 14.6 gm/dl (14.0-17.5); WHITE BLOOD COUNT 13.7 K/UL (4.5-11.0)
[2021-07-29 04:57] LABS: HEMOGLOBIN 14.4 gm/dl (14.0-17.5); RED BLOOD COUNT 4.97 M/UL (4.20-5.50); WHITE BLOOD COUNT 14.6 K/UL (4.5-11.0)
[2021-07-29 05:26] LABS: BUN/CREATININE RATIO 31 (0-10)
[2021-07-30 05:05] LABS: HEMOGLOBIN 13.9 gm/dl (14.0-17.5); RED BLOOD COUNT 4.79 M/UL (4.20-5.50)
[2021-07-30 05:25] LABS: BUN/CREATININE RATIO 34 (0-10)
--- NOTE | 2021-07-30 21:45 | NUR ---
PATIENT GLUCOSE LEVEL 493. DR SEXTON NOTIFIED. PATIENT NOTED TO HAVE EATEN AN ENTIRE LARGE PIZZA BY HIMSELF AND DRANK A 2L OF MOUNTAIN DEW. PATIENT INSTRUCTED ON DIABETIC MANAGEMENT AND DIET, PATIENT VERBALIZES HE UNDERSTANDS EDUCATION, BUT HE DOESNT FOLLOW DIET. DR SEXTON MADE AWARE OF BG LEVEL PER PROTOCOL, AND ADMINISTRATION OF 10 UNITS HUMALOG AND 45 LANTUS PER ORDER. NO FURTHER ORDERS AT THIS TIME. WILL CONTINUE TO MONITOR PATIENT
--- NOTE | 2021-07-30 22:00 | NUR ---
PATIENT ATTEMPTING TO LEAVE FLOOR , NO O2 ON OR IN PLACE. PATIENT O2 SAT VIA PORTABLE MONITOR 77 PERCENT. PATIENT INSTRUCTED TO GET BACK INTO ROOM AND PUT NC BACK ON . PATIENT LABORED RR NOTED, O2 SAT AFTER APPLYING OXYGEN VIA NC INCREASED TO 92. MD AWARE OF PATIENT DOING THIS.
[2021-07-31 07:21] LABS: BUN/CREATININE RATIO 34 (0-10)
[2021-08-01 07:46] LABS: BUN/CREATININE RATIO 36 (0-10)
[2021-08-01] MEDS ORDERED: YUPELRI175 MCG/3 INH (09:39)
[2021-08-06 07:00] LABS: HEMOGLOBIN 14.2 gm/dl (14.0-17.5); RED BLOOD COUNT 5.1 M/UL (4.20-5.50); WHITE BLOOD COUNT 18.2 K/UL (4.5-11.0)
--- NOTE | 2021-08-06 17:56 | NUR ---
09- NOTIFIED DR BEY OF PATIENT COMPLAINTS WITH INCREASED PAIN IN LEGS. NEW ORDER NOTED.
[2021-08-08 04:58] LABS: RED BLOOD COUNT 4.92 M/UL (4.20-5.50); WHITE BLOOD COUNT 20.1 K/UL (4.5-11.0)
[2021-08-08 05:16] LABS: BUN/CREATININE RATIO 16 (0-10)
[2021-08-09 09:59] LABS: HEMOGLOBIN 13.1 gm/dl (14.0-17.5); RED BLOOD COUNT 4.69 M/UL (4.20-5.50); WHITE BLOOD COUNT 20.2 K/UL (4.5-11.0)
[2021-08-09 10:10] LABS: BUN/CREATININE RATIO 21 (0-10)
[2021-08-12 07:23] LABS: HEMOGLOBIN 13.2 gm/dl (14.0-17.5); RED BLOOD COUNT 4.66 M/UL (4.20-5.50)
[2021-08-12 07:26] LABS: WHITE BLOOD COUNT 12.9 K/UL (4.5-11.0)
[2021-08-12 07:44] LABS: BUN/CREATININE RATIO 14 (0-10)
--- NOTE | 2021-08-13 10:18 | NUR ---
NOTIFIED MD OF PATIENTS COMPLAINT OF ANXIETY ATTACK. PT STATING HE TAKES ATARAX AT HOME. NO DISTRESS NOTED. MD STATES COULD RESUME HOME ATARAX ORDER.
[2021-08-14 07:15] LABS: HEMOGLOBIN 13.2 gm/dl (14.0-17.5); RED BLOOD COUNT 4.76 M/UL (4.20-5.50); WHITE BLOOD COUNT 12.9 K/UL (4.5-11.0)
[2021-08-14 07:37] LABS: BUN/CREATININE RATIO 14 (0-10)
[2021-08-15 03:48] LABS: HEMOGLOBIN 11.8 gm/dl (14.0-17.5); RED BLOOD COUNT 4.82 M/UL (4.20-5.50); WHITE BLOOD COUNT 10.5 K/UL (4.5-11.0)
[2021-08-15 04:07] LABS: BUN/CREATININE RATIO 16 (0-10)
[2021-08-16 05:47] LABS: HEMOGLOBIN 12.4 gm/dl (14.0-17.5); RED BLOOD COUNT 4.44 M/UL (4.20-5.50)
[2021-08-16 05:54] LABS: WHITE BLOOD COUNT 16.6 K/UL (4.5-11.0)
[2021-08-17 04:48] LABS: HEMOGLOBIN 12.7 gm/dl (14.0-17.5); RED BLOOD COUNT 4.47 M/UL (4.20-5.50); WHITE BLOOD COUNT 14.8 K/UL (4.5-11.0)
[2021-08-17 04:59] LABS: BUN/CREATININE RATIO 14 (0-10)
[2021-08-17] MEDS ORDERED: LEVOFLOXACIN500 MG PO (09:43)
[2021-08-18 07:59] LABS: HEMOGLOBIN 13.3 gm/dl (14.0-17.5); RED BLOOD COUNT 4.6 M/UL (4.20-5.50); WHITE BLOOD COUNT 12.3 K/UL (4.5-11.0)
[2021-08-19 08:03] LABS: HEMOGLOBIN 12.8 gm/dl (14.0-17.5); RED BLOOD COUNT 4.59 M/UL (4.20-5.50); WHITE BLOOD COUNT 12.8 K/UL (4.5-11.0)
[2021-08-19 08:31] LABS: BUN/CREATININE RATIO 18 (0-10)
[2021-08-20 06:49] LABS: HEMOGLOBIN 13.2 gm/dl (14.0-17.5); RED BLOOD COUNT 4.68 M/UL (4.20-5.50); WHITE BLOOD COUNT 12.3 K/UL (4.5-11.0)
[2021-08-20 07:01] LABS: BUN/CREATININE RATIO 17 (0-10)
[2021-08-20] MEDS ORDERED: LEVOFLOXACIN500 MG PO (08:27)
--- NOTE | 2021-08-20 14:01 | NUR ---
CALLED REPORT TO BALBIR PETTIT RN AT [facility].FAXED OVER COPY OF SLIDING SCALE PER HER REQUEST.
== END 2021-08-20 15:33 | DRG 189 ==
LOC: ER1 15:12 → MED SURG 4 17:28 → CDU 17:28 → MED SURG 4 07-30 17:11
PROVIDERS: Emergency Medicine; Internal Medicine; Physician Assistant; ADMIT Internal Medicine
PROC: 5A0935A Assistance with Respiratory Ventilation, Less than 24 Consecutive Hours, High Flow/Velocity Cannula (ICD-10-PCS; principal; 2021-07-28)
PROC: 5A0955A Assistance with Respiratory Ventilation, Greater than 96 Consecutive Hours, High Flow/Velocity Cannula (ICD-10-PCS; 2021-07-30)
PROC: 5A09357 Assistance with Respiratory Ventilation, Less than 24 Consecutive Hours, Continuous Positive Airway Pressure (ICD-10-PCS; 2021-07-30)
DX: J96.22 Acute and chronic respiratory failure with hypercapnia (principal); J18.9 Pneumonia, unspecified organism; Z20.822 Contact with and (suspected) exposure to COVID-19; L03.116 Cellulitis of left lower limb; N17.9 Acute kidney failure, unspecified; J44.0 Chronic obstructive pulmonary disease with (acute) lower respiratory infection; I50.32 Chronic diastolic (congestive) heart failure; E66.2 Morbid (severe) obesity with alveolar hypoventilation; J44.1 Chronic obstructive pulmonary disease with (acute) exacerbation; J96.21 Acute and chronic respiratory failure with hypoxia; E11.9 Type 2 diabetes mellitus without complications; I27.81 Cor pulmonale (chronic); E78.5 Hyperlipidemia, unspecified; I11.0 Hypertensive heart disease with heart failure; Z79.2 Long term (current) use of antibiotics; Z79.01 Long term (current) use of anticoagulants; Z79.82 Long term (current) use of aspirin; Z79.4 Long term (current) use of insulin; Z99.81 Dependence on supplemental oxygen; Z87.01 Personal history of pneumonia (recurrent); Z82.5 Family history of asthma and other chronic lower respiratory diseases; Z80.1 Family history of malignant neoplasm of trachea, bronchus and lung; Z88.1 Allergy status to other antibiotic agents; Z68.38 Body mass index [BMI] 38.0-38.9, adult
CPT/HCPCS: 0240U; 36415; 36600; 71045; 80048; 80053; 80202; 82550; 82553; 82803; 82962; 83540; 83550; 83605; 83735; 83874; 83880; 84100; 84484; 85025; 85027; 85610; 85730; 86140; 87040; 87045; 87046; 87070; 87081; 87205; 93005; 93970; 94640; 94660; 94664; 94760; 96365; 96366; 96375; 96376; 97161; 97166; 99285; G0378; J1650; J1940; J2185; J2270; J2405; J2920; J2930; J3370; J7030; J7070; U0002

== ENCOUNTER 2021-08-31 14:50 | Emergency (ER) | payer OTHER ==
[~2021-08-31 14:50] MED LIST changes: +ADVAIR 250-501 EACH INH; -ASPIRIN EC81 MG PO; +ATROVENT HFA12.9 GM INH; +CLINDAMYCIN HC300 MG PO; +LEVEMIR FL100 UNIT/1 SQ; +METFORMIN HCL500 MG PO; +PREDNISONE5 MG PO; +SPIRIVA HANDIH18 MCG INH; +TYLENOL EXTRA500 MG PO; +WELLBUTRIN XL300 MG PO; +YUPELRI175 MCG/3 INH
== END 2021-08-31 18:12 | disposition home or self-care (01) ==
LOC: ER1 14:50
DX: S39.012A Strain of muscle, fascia and tendon of lower back, initial encounter (principal); E11.9 Type 2 diabetes mellitus without complications; I50.9 Heart failure, unspecified; Z88.8 Allergy status to other drugs, medicaments and biological substances; W00.0XXA Fall on same level due to ice and snow, initial encounter
CPT/HCPCS: 72128; 72131; 72192; 99283

== ENCOUNTER 2021-09-02 13:18 | Inpatient (IN) | payer OTHER ==
[~2021-09-02] VITALS: Ht 177.8 cm; Wt 127.0 kg
[2021-09-02 14:44] LABS: HEMOGLOBIN 14.4 gm/dl (14.0-17.5); RED BLOOD COUNT 5.06 M/UL (4.20-5.50); WHITE BLOOD COUNT 10.4 K/UL (4.5-11.0)
[2021-09-02 15:12] LABS: BUN/CREATININE RATIO 13 (0-10)
[2021-09-03 03:47] LABS: HEMOGLOBIN 14.5 gm/dl (14.0-17.5); RED BLOOD COUNT 5.02 M/UL (4.20-5.50); WHITE BLOOD COUNT 9.8 K/UL (4.5-11.0)
[2021-09-03 04:14] LABS: BUN/CREATININE RATIO 18 (0-10)
[2021-09-03] MEDS ORDERED: NICOTINE PATCH1 EACH TD (11:28)
[2021-09-03] MEDS ORDERED: ADVAIR 250-501 EACH INH (11:30)
[2021-09-03] MEDS ORDERED: HYDROXYZINE HCL25 MG PO (11:31)
[2021-09-03] MEDS ORDERED: IBUPROFEN800 MG PO (11:32)
[2021-09-03] MEDS ORDERED: LEVEMIR100 UNIT/1 SC (11:34)
[2021-09-03] MEDS ORDERED: INSULIN AS100 UNIT/3 SC (11:36)
[2021-09-03] MEDS ORDERED: PRAZOSIN HCL2 MG PO (11:40)
[2021-09-03] MEDS ORDERED: ATROVENT-HFA12.9 GM INH (11:41)
[2021-09-03] MEDS ORDERED: KLONOPIN0.5 MG PO (17:11)
[2021-09-03] MEDS ORDERED: IMITREX100 MG PO (17:12)
[2021-09-03] MEDS ORDERED: ASPIRIN EC81 MG PO (19:38)
[2021-09-04 05:44] LABS: BUN/CREATININE RATIO 21 (0-10)
[2021-09-05 07:30] LABS: HEMOGLOBIN 13.1 gm/dl (14.0-17.5); RED BLOOD COUNT 4.69 M/UL (4.20-5.50)
[2021-09-05 07:32] LABS: WHITE BLOOD COUNT 13.2 K/UL (4.5-11.0)
[2021-09-06 03:40] LABS: HEMOGLOBIN 13.2 gm/dl (14.0-17.5); RED BLOOD COUNT 4.69 M/UL (4.20-5.50); WHITE BLOOD COUNT 15.4 K/UL (4.5-11.0)
[2021-09-06 04:51] LABS: BUN/CREATININE RATIO 20 (0-10)
[2021-09-06] MEDS ORDERED: DECADRON6 MG PO (14:17)
== END 2021-09-06 22:50 | disposition home or self-care (01) | DRG 177 ==
LOC: ER1 13:18 → CDU 21:36 → MED SURG 4 09-04 20:19
PROVIDERS: Internal Medicine; Internal Medicine Infectious Disease; Physician Assistant Medical; ADMIT Emergency Medicine
PROC: 8E0ZXY6 Isolation (ICD-10-PCS; principal; 2021-09-02)
PROC: 3E0333Z Introduction of Anti-inflammatory into Peripheral Vein, Percutaneous Approach (ICD-10-PCS; 2021-09-02)
PROC: XW0DXM6 Introduction of Baricitinib into Mouth and Pharynx, External Approach, New Technology Group 6 (ICD-10-PCS; 2021-09-03)
PROC: 5A09357 Assistance with Respiratory Ventilation, Less than 24 Consecutive Hours, Continuous Positive Airway Pressure (ICD-10-PCS; 2021-09-06)
DX: U07.1 COVID-19 (principal); J96.21 Acute and chronic respiratory failure with hypoxia; J96.22 Acute and chronic respiratory failure with hypercapnia; J12.82 Pneumonia due to coronavirus disease 2019; I50.32 Chronic diastolic (congestive) heart failure; J44.0 Chronic obstructive pulmonary disease with (acute) lower respiratory infection; J44.1 Chronic obstructive pulmonary disease with (acute) exacerbation; N17.9 Acute kidney failure, unspecified; Z68.41 Body mass index [BMI] 40.0-44.9, adult; E66.2 Morbid (severe) obesity with alveolar hypoventilation; I11.0 Hypertensive heart disease with heart failure; I87.2 Venous insufficiency (chronic) (peripheral); E11.65 Type 2 diabetes mellitus with hyperglycemia; J20.9 Acute bronchitis, unspecified; G47.33 Obstructive sleep apnea (adult) (pediatric); Z96.662 Presence of left artificial ankle joint; E87.6 Hypokalemia; Z98.890 Other specified postprocedural states; Z79.899 Other long term (current) drug therapy; Z79.82 Long term (current) use of aspirin; Z79.4 Long term (current) use of insulin; Z80.1 Family history of malignant neoplasm of trachea, bronchus and lung; Z99.81 Dependence on supplemental oxygen; Z23 Encounter for immunization; Z87.891 Personal history of nicotine dependence
CPT/HCPCS: 36415; 36600; 71045; 80053; 82550; 82553; 82803; 82962; 83036; 83735; 83874; 84484; 85025; 85027; 86140; 93005; 94640; 94660; 94664; 94760; 96372; 96374; 96375; 96376; 99285; J1100; J1650; J1956; J2405; Q9967; U0002

== ENCOUNTER 2021-09-27 13:51 | Emergency (ER) | payer OTHER ==
[~2021-09-27 13:51] MED LIST changes: +ASPIRIN EC81 MG PO; +ATROVENT-HFA12.9 GM INH; +DECADRON6 MG PO; +INSULIN AS100 UNIT/3 SC; +LEVEMIR100 UNIT/1 SC; +NICOTINE PATCH1 EACH TD
[2021-09-27 15:11] LABS: HEMOGLOBIN 14.5 gm/dl (14.0-17.5); RED BLOOD COUNT 4.91 M/UL (4.20-5.50); WHITE BLOOD COUNT 11.1 K/UL (4.5-11.0)
[2021-09-27 15:35] LABS: BUN/CREATININE RATIO 13 (0-10)
[2021-09-27] MEDS ORDERED: DOXYCYCLINE HY100 MG PO (18:00)
== END 2021-09-27 20:12 | disposition home or self-care (01) ==
LOC: ER1 13:51
DX: J44.1 Chronic obstructive pulmonary disease with (acute) exacerbation (principal); I50.9 Heart failure, unspecified
CPT/HCPCS: 36600; 71045; 80053; 82550; 82553; 82803; 83880; 84484; 85025; 85379; 93005; 94664; 96372; 99285; J1100

== ENCOUNTER 2021-10-04 08:22 | Emergency (ER) | payer OTHER ==
[2021-10-04] MEDS ORDERED: CLEOCIN HCL300 MG PO (08:42)
[2021-10-04 09:14] LABS: HEMOGLOBIN 14.9 gm/dl (14.0-17.5); RED BLOOD COUNT 5.26 M/UL (4.20-5.50); WHITE BLOOD COUNT 13.1 K/UL (4.5-11.0)
[2021-10-04 09:48] LABS: BUN/CREATININE RATIO 13 (0-10)
[2021-10-04] MEDS ORDERED: ALBUTEROL2.5 MG/3 M INH (10:33)
[2021-10-04] MEDS ORDERED: AERONEB GO NEB1 EACH MC (10:33)
== END 2021-10-04 12:10 | disposition home or self-care (01) ==
LOC: ER1 08:22
PROVIDERS: Nurse Practitioner
DX: J44.1 Chronic obstructive pulmonary disease with (acute) exacerbation (principal); N49.2 Inflammatory disorders of scrotum; I11.9 Hypertensive heart disease without heart failure; E10.9 Type 1 diabetes mellitus without complications; Z88.1 Allergy status to other antibiotic agents; F17.210 Nicotine dependence, cigarettes, uncomplicated
CPT/HCPCS: 71045; 80053; 85025; 94664; 96374; 99285; J2930

== ENCOUNTER 2021-10-10 08:33 | Observation (INO) | payer OTHER ==
[~2021-10-10] VITALS: Ht 177.8 cm; Wt 122.5 kg
[~2021-10-10 08:33] MED LIST changes: +AERONEB GO NEB1 EACH MC; -ASPIRIN EC81 MG PO; +ASPIRIN81 MG PO; -INSULIN AS100 UNIT/3 SC; +INSULIN AS100 UNIT/3 SQ; -LEVEMIR100 UNIT/1 SC; +LEVEMIR100 UNIT/1 SQ; +NICODERM CQ1 EAC2 TD; -NICOTINE PATCH1 EACH TD
[2021-10-10 09:24] LABS: HEMOGLOBIN 15.1 gm/dl (14.0-17.5); RED BLOOD COUNT 5.18 M/UL (4.20-5.50); WHITE BLOOD COUNT 14.4 K/UL (4.5-11.0)
[2021-10-10 09:53] LABS: BUN/CREATININE RATIO 13 (0-10)
[2021-10-10] MEDS ORDERED: FUROSEMIDE40 MG PO (14:33)
[2021-10-10] MEDS ORDERED: IBU800 MG PO (14:34)
[2021-10-10] MEDS ORDERED: BENZONATATE100 MG PO (14:34)
[2021-10-10] MEDS ORDERED: ATROVENT HFA12.9 GM INH (14:35)
[2021-10-10] MEDS ORDERED: NEURONTIN300 MG PO (14:35)
[2021-10-10] MEDS ORDERED: KLONOPIN0.5 MG PO (14:36)
[2021-10-11 04:41] LABS: HEMOGLOBIN 14.8 gm/dl (14.0-17.5); RED BLOOD COUNT 5.15 M/UL (4.20-5.50)
[2021-10-11 04:43] LABS: WHITE BLOOD COUNT 18.6 K/UL (4.5-11.0)
[2021-10-11] MEDS ORDERED: ATROVENT HFA12.9 GM INH (08:32)
[2021-10-11] MEDS ORDERED: ADVAIR 250-501 EACH INH (08:32)
[2021-10-11] MEDS ORDERED: MEDROL DOSEPAK 24 MG PO (08:32)
[2021-10-11] MEDS ORDERED: SPIRIVA HANDIH18 MCG INH (08:32)
[2021-10-11] MEDS ORDERED: LEVOFLOXACIN500 MG PO (08:32)
[2021-10-12 06:30] LABS: HEMOGLOBIN 13.9 gm/dl (14.0-17.5); RED BLOOD COUNT 4.8 M/UL (4.20-5.50)
[2021-10-12 06:31] LABS: WHITE BLOOD COUNT 23.5 K/UL (4.5-11.0)
[2021-10-12 06:54] LABS: BUN/CREATININE RATIO 22 (0-10)
[2021-10-15 16:12] LABS: ORGANISM ID Not indicated. (.); SPECIMEN SOURCE Urine (.); STREPTOCOCCUS PNEUMONIAE AG Negative (Negative)
== END 2021-10-12 11:10 | disposition home health service (06) ==
LOC: ER1 08:33 → CDU 12:23 → M/S 12:23
PROVIDERS: Emergency Medicine; Physician Assistant Medical; ADMIT Internal Medicine
DX: J44.1 Chronic obstructive pulmonary disease with (acute) exacerbation (principal); J96.11 Chronic respiratory failure with hypoxia; E66.2 Morbid (severe) obesity with alveolar hypoventilation; I11.0 Hypertensive heart disease with heart failure; I50.32 Chronic diastolic (congestive) heart failure; E11.9 Type 2 diabetes mellitus without complications; I87.8 Other specified disorders of veins; I45.10 Unspecified right bundle-branch block; Z88.1 Allergy status to other antibiotic agents; Z79.82 Long term (current) use of aspirin; Z91.14 Patient's other noncompliance with medication regimen; Z20.822 Contact with and (suspected) exposure to COVID-19; Z87.891 Personal history of nicotine dependence
CPT/HCPCS: 36415; 36600; 71045; 80048; 80053; 81001; 82550; 82553; 82803; 82962; 83605; 83735; 83880; 84484; 85025; 85027; 87040; 87070; 87086; 87205; 87278; 87899; 93005; 94640; 94660; 94664; 94760; 96374; 96375; 96376; 99285; G0378; J1650; J1956; J2185; J2920; J2930; J7030; U0002

== ENCOUNTER 2021-11-11 14:38 | Inpatient (IN) | payer OTHER ==
[~2021-11-11] VITALS: Ht 177.8 cm; Wt 124.7 kg
[2021-11-11 15:40] LABS: HEMOGLOBIN 15.2 gm/dl (14.0-17.5); RED BLOOD COUNT 5.13 M/UL (4.20-5.50)
[2021-11-11 16:07] LABS: BUN/CREATININE RATIO 15 (0-10)
[2021-11-12 02:19] LABS: HEMOGLOBIN 16.1 gm/dl (14.0-17.5); RED BLOOD COUNT 5.45 M/UL (4.20-5.50); WHITE BLOOD COUNT 13.1 K/UL (4.5-11.0)
[2021-11-12 02:50] LABS: BUN/CREATININE RATIO 18 (0-10)
[2021-11-12] MEDS ORDERED: JARDIANCE25 MG PO (14:17)
[2021-11-12] MEDS ORDERED: VITAMIN D21250 MCG PO (14:18)
[2021-11-12] MEDS ORDERED: IPRAT-ALBUT 0.5-3 ML INH (14:20)
[2021-11-12] MEDS ORDERED: NICOTINE PATCH1 EACH TD (14:21)
[2021-11-12 17:02] LABS: BUN/CREATININE RATIO 27 (0-10)
[2021-11-13 03:22] LABS: HEMOGLOBIN 15.1 gm/dl (14.0-17.5); RED BLOOD COUNT 5.06 M/UL (4.20-5.50)
[2021-11-13 03:24] LABS: WHITE BLOOD COUNT 25.5 K/UL (4.5-11.0)
[2021-11-13 03:58] LABS: BUN/CREATININE RATIO 32 (0-10)
[2021-11-14 02:33] LABS: HEMOGLOBIN 14.1 gm/dl (14.0-17.5); RED BLOOD COUNT 4.87 M/UL (4.20-5.50)
[2021-11-14 03:08] LABS: BUN/CREATININE RATIO 34 (0-10)
[2021-11-14 03:14] LABS: WHITE BLOOD COUNT 16.4 K/UL (4.5-11.0)
[2021-11-14 17:13] LABS: ORGANISM ID Not indicated. (.); SPECIMEN SOURCE Urine (.); STREPTOCOCCUS PNEUMONIAE AG Negative (Negative)
[2021-11-15 04:01] LABS: BUN/CREATININE RATIO 31 (0-10)
--- NOTE | 2021-11-15 04:05 | NUR ---
0405: LAB CALLED WITH A CRITICAL GLUCOSE OF 549 ON PATIENT FROM BLOOD DRAW. RN RECHECKED PT'S GLUCOSE. PT'S FINGERSTICK GLUCOSE WAS STILL CRITICAL AT 434. 0415: NOTIFIED . SEE PROVIDER NOTIFICATIONS FOR DETAILS.
[2021-11-15 04:09] LABS: HEMOGLOBIN 13.4 gm/dl (14.0-17.5); RED BLOOD COUNT 4.59 M/UL (4.20-5.50); WHITE BLOOD COUNT 15.3 K/UL (4.5-11.0)
[2021-11-16 03:52] LABS: BUN/CREATININE RATIO 28 (0-10)
[2021-11-16] MEDS ORDERED: MEDROL DOSEPAK 24 MG PO (13:55)
== END 2021-11-16 16:30 | disposition home or self-care (01) | DRG 189 ==
LOC: ER1 14:38 → CDU 17:36 → MED SURG 4 17:36 → PROG CARE 17:36 → MED SURG 4 11-14 17:15
PROVIDERS: Emergency Medicine; Internal Medicine; Internal Medicine Infectious Disease; ADMIT Internal Medicine
PROC: 5A09357 Assistance with Respiratory Ventilation, Less than 24 Consecutive Hours, Continuous Positive Airway Pressure (ICD-10-PCS; principal; 2021-11-11)
PROC: 5A09357 Assistance with Respiratory Ventilation, Less than 24 Consecutive Hours, Continuous Positive Airway Pressure (ICD-10-PCS; 2021-11-13)
PROC: 5A09357 Assistance with Respiratory Ventilation, Less than 24 Consecutive Hours, Continuous Positive Airway Pressure (ICD-10-PCS; 2021-11-14)
PROC: 5A09357 Assistance with Respiratory Ventilation, Less than 24 Consecutive Hours, Continuous Positive Airway Pressure (ICD-10-PCS; 2021-11-15)
PROC: 5A09357 Assistance with Respiratory Ventilation, Less than 24 Consecutive Hours, Continuous Positive Airway Pressure (ICD-10-PCS; 2021-11-16)
DX: J96.21 Acute and chronic respiratory failure with hypoxia (principal); J18.9 Pneumonia, unspecified organism; J44.1 Chronic obstructive pulmonary disease with (acute) exacerbation; Z20.822 Contact with and (suspected) exposure to COVID-19; E66.2 Morbid (severe) obesity with alveolar hypoventilation; I50.32 Chronic diastolic (congestive) heart failure; E87.2 Acidosis; E87.1 Hypo-osmolality and hyponatremia; J96.22 Acute and chronic respiratory failure with hypercapnia; I87.8 Other specified disorders of veins; E11.65 Type 2 diabetes mellitus with hyperglycemia; G89.29 Other chronic pain; F41.9 Anxiety disorder, unspecified; I11.0 Hypertensive heart disease with heart failure; Z79.4 Long term (current) use of insulin; Z98.890 Other specified postprocedural states; Z99.81 Dependence on supplemental oxygen; Z83.6 Family history of other diseases of the respiratory system; Z80.1 Family history of malignant neoplasm of trachea, bronchus and lung; Z68.39 Body mass index [BMI] 39.0-39.9, adult
CPT/HCPCS: 0240U; 36415; 36600; 71045; 80048; 80053; 81001; 82550; 82553; 82803; 82962; 83540; 83550; 83605; 83735; 83880; 84100; 84484; 85025; 85027; 85652; 86140; 87040; 87081; 87086; 87278; 87880; 87899; 93005; 94640; 94660; 94664; 94760; 96374; 96375; 97161; 97165; 99285; J0360; J1650; J2185; J2920; J2930; Q0177

== ENCOUNTER 2021-12-05 01:32 | Emergency (ER) | payer OTHER ==
[~2021-12-05 01:32] MED LIST changes: +NICOTINE PATCH1 EACH TD; +VITAMIN D21250 MCG PO
[2021-12-05 02:00] LABS: HEMOGLOBIN 15.4 gm/dl (14.0-17.5); RED BLOOD COUNT 5.2 M/UL (4.20-5.50); WHITE BLOOD COUNT 11.9 K/UL (4.5-11.0)
[2021-12-05 02:25] LABS: BUN/CREATININE RATIO 21 (0-10)
[2021-12-05] MEDS ORDERED: DOXYCYCLINE HY100 MG PO (03:29)
[2021-12-05] MEDS ORDERED: PREDNISONE 10 M10 MG PO (03:29)
== END 2021-12-05 13:40 | disposition home or self-care (01) ==
LOC: ER1 01:32
PROVIDERS: Physician Assistant
DX: J44.1 Chronic obstructive pulmonary disease with (acute) exacerbation (principal); E11.9 Type 2 diabetes mellitus without complications; E87.1 Hypo-osmolality and hyponatremia
CPT/HCPCS: 71045; 80053; 82550; 82553; 82962; 83880; 84484; 85025; 93005; 94664; 96374; 96375; 99285; J1100

== ENCOUNTER 2022-02-10 07:23 | Emergency (ER) | payer OTHER ==
[~2022-02-10] VITALS: Ht 177.8 cm; Wt 122.5 kg
[~2022-02-10 07:23] MED LIST changes: +PREDNISONE 10 M10 MG PO
[2022-02-10 07:51] LABS: HEMOGLOBIN 15.7 gm/dl (14.0-17.5); RED BLOOD COUNT 5.33 M/UL (4.20-5.50); WHITE BLOOD COUNT 12.8 K/UL (4.5-11.0)
[2022-02-10 08:37] LABS: BUN/CREATININE RATIO 21 (0-10)
[2022-02-10] MEDS ORDERED: PROVENTIL HFA6.7 GM INH (10:19)
== END 2022-02-10 12:02 | disposition home or self-care (01) ==
LOC: ER1 07:23
PROVIDERS: Emergency Medicine
DX: U07.1 COVID-19 (principal); Z23 Encounter for immunization; J44.9 Chronic obstructive pulmonary disease, unspecified; I10 Essential (primary) hypertension; E11.9 Type 2 diabetes mellitus without complications; Z99.81 Dependence on supplemental oxygen
CPT/HCPCS: 0240U; 36600; 71045; 80053; 82550; 82553; 82803; 83605; 83880; 84484; 85025; 87040; 93005; 94664; 99284; M0222; Q0177

== ENCOUNTER 2022-03-25 05:49 | Emergency (ER) | payer MEDICARE, OTHER ==
[2022-03-25 06:37] LABS: HEMOGLOBIN 15.6 gm/dl (14.0-17.5); RED BLOOD COUNT 5.28 M/UL (4.20-5.50); WHITE BLOOD COUNT 15.6 K/UL (4.5-11.0)
[2022-03-25 07:12] LABS: BUN/CREATININE RATIO 14 (0-10)
[2022-03-25] MEDS ORDERED: AMOX TR-K CLV1 EAC4 PO (07:38)
[2022-03-25] MEDS ORDERED: ZITHROMAX250 MG PO (07:38)
== END 2022-03-25 09:47 | disposition home or self-care (01) ==
LOC: ER1 05:49
PROVIDERS: Physician Assistant
DX: J44.0 Chronic obstructive pulmonary disease with (acute) lower respiratory infection (principal); J18.9 Pneumonia, unspecified organism; I50.9 Heart failure, unspecified; E11.9 Type 2 diabetes mellitus without complications; Z79.4 Long term (current) use of insulin; F17.210 Nicotine dependence, cigarettes, uncomplicated; Z20.822 Contact with and (suspected) exposure to COVID-19
CPT/HCPCS: 71045; 80053; 82550; 82553; 83880; 84484; 85025; 93005; 94664; 99285; U0002

== ENCOUNTER 2022-03-30 06:07 | Inpatient (IN) | payer MEDICARE, OTHER ==
[~2022-03-30] VITALS: Ht 177.8 cm; Wt 113.4 kg
[~2022-03-30 06:07] MED LIST changes: +AMOX TR-K CLV1 EAC4 PO; +ZITHROMAX250 MG PO
[2022-03-30 06:37] LABS: HEMOGLOBIN 14.5 gm/dl (14.0-17.5); RED BLOOD COUNT 4.97 M/UL (4.20-5.50); WHITE BLOOD COUNT 13.6 K/UL (4.5-11.0)
[2022-03-30 06:58] LABS: BUN/CREATININE RATIO 16 (0-10)
[2022-03-30] MEDS ORDERED: LAMICTAL25 MG PO (09:39)
[2022-03-30] MEDS ORDERED: MIRTAZAPINE7.5 MG PO (09:40)
[2022-03-30] MEDS ORDERED: PRAZOSIN HCL2 MG PO (09:40)
[2022-03-30] MEDS ORDERED: METFORMIN HCL1000 MG PO (09:41)
[2022-03-30] MEDS ORDERED: NYSTATIN60 GM TOP (09:41)
[2022-03-30] MEDS ORDERED: CRESTOR20 MG PO (09:41)
[2022-03-30] MEDS ORDERED: BREZTRI AEROS10.7 GM INH (09:42)
[2022-03-30] MEDS ORDERED: VITAMIN D21250 MCG PO (09:42)
[2022-03-30] MEDS ORDERED: PROAIR HFA8.5 GM INH (09:42)
[2022-03-30] MEDS ORDERED: IPRAT-ALBUT 0.5-3 ML INH (09:42)
--- NOTE | 2022-03-30 21:16 | NUR ---
PT BLOOD GLUCOSE 422, MD MADE AWARE, NEW ORDER NOTED
[2022-03-31 03:12] LABS: HEMOGLOBIN 14.5 gm/dl (14.0-17.5); RED BLOOD COUNT 4.96 M/UL (4.20-5.50)
[2022-03-31 03:22] LABS: WHITE BLOOD COUNT 19.3 K/UL (4.5-11.0)
[2022-04-01 06:28] LABS: HEMOGLOBIN 13.7 gm/dl (14.0-17.5); RED BLOOD COUNT 4.68 M/UL (4.20-5.50)
[2022-04-01 06:32] LABS: WHITE BLOOD COUNT 11.2 K/UL (4.5-11.0)
[2022-04-01 06:47] LABS: BUN/CREATININE RATIO 21 (0-10)
[2022-04-02 02:52] LABS: BORDETELLA PARAPERTUSSIS Not Detected (Not Detectd); BORDETELLA PERTUSSIS Not Detected (Not Detectd); CHLAMYDIA PNEUMONIAE Not Detected (Not Detectd); CORONAVIRUS HKU1 Not Detected (Not Detectd); CORONAVIRUS NL63 Not Detected (Not Detectd); CORONAVIRUS OC43 Not Detected (Not Detectd); CORONOAVIRUS 229E Not Detected (Not Detectd); HUMAN METAPNEUMOVIRUS Not Detected (Not Detectd); HUMAN RHINOVIRUS/ENTEROVIRUS Not Detected (Not Detectd); INFLUENZA A Not Detected (Not Detectd); INFLUENZA B Not Detected (Not Detectd); MYCOPLASMA PNEUMONIAE Not Detected (Not Detectd); PARAINFLUENZA VIRUS 1 Not Detected (Not Detectd); PARAINFLUENZA VIRUS 2 Not Detected (Not Detectd); PARAINFLUENZA VIRUS 3 Not Detected (Not Detectd); PARAINFLUENZA VIRUS 4 Not Detected (Not Detectd); RESPIRATORY SYNCYTIAL VIRUS Not Detected (Not Detectd)
[2022-04-02 04:43] LABS: SARS-CoV-2 NOT DETECTED (Not Detectd)
[2022-04-02 06:23] LABS: HEMOGLOBIN 14.5 gm/dl (14.0-17.5); RED BLOOD COUNT 4.9 M/UL (4.20-5.50)
[2022-04-02 06:27] LABS: WHITE BLOOD COUNT 16.4 K/UL (4.5-11.0)
[2022-04-02 07:07] LABS: BUN/CREATININE RATIO 29 (0-10)
[2022-04-03 06:13] LABS: HEMOGLOBIN 14.6 gm/dl (14.0-17.5); RED BLOOD COUNT 4.99 M/UL (4.20-5.50); WHITE BLOOD COUNT 17.6 K/UL (4.5-11.0)
[2022-04-03 08:06] LABS: BUN/CREATININE RATIO 30 (0-10)
[2022-04-03] MEDS ORDERED: MEDROL DOSEPAK 24 MG PO (11:47)
[2022-04-03] MEDS ORDERED: LEVEMIR100 UNIT/1 SQ (11:47)
== END 2022-04-03 13:27 | disposition home or self-care (01) | DRG 871 ==
LOC: ER1 06:07 → MED SURG 4 08:12 → CDU 08:12 → MED SURG 4 08:12
PROVIDERS: Internal Medicine; Physician Assistant; Physician Assistant Medical; ADMIT Internal Medicine Infectious Disease
PROC: 5A09357 Assistance with Respiratory Ventilation, Less than 24 Consecutive Hours, Continuous Positive Airway Pressure (ICD-10-PCS; principal; 2022-03-30)
PROC: 5A09357 Assistance with Respiratory Ventilation, Less than 24 Consecutive Hours, Continuous Positive Airway Pressure (ICD-10-PCS; 2022-04-01)
PROC: 5A09357 Assistance with Respiratory Ventilation, Less than 24 Consecutive Hours, Continuous Positive Airway Pressure (ICD-10-PCS; 2022-04-02)
DX: A41.9 Sepsis, unspecified organism (principal); J18.9 Pneumonia, unspecified organism; J96.21 Acute and chronic respiratory failure with hypoxia; J96.22 Acute and chronic respiratory failure with hypercapnia; J44.1 Chronic obstructive pulmonary disease with (acute) exacerbation; J44.0 Chronic obstructive pulmonary disease with (acute) lower respiratory infection; E66.2 Morbid (severe) obesity with alveolar hypoventilation; I50.32 Chronic diastolic (congestive) heart failure; Z68.35 Body mass index [BMI] 35.0-35.9, adult; Z20.822 Contact with and (suspected) exposure to COVID-19; I11.0 Hypertensive heart disease with heart failure; E11.65 Type 2 diabetes mellitus with hyperglycemia; I87.8 Other specified disorders of veins; Z79.4 Long term (current) use of insulin; Z91.14 Patient's other noncompliance with medication regimen; Z88.8 Allergy status to other drugs, medicaments and biological substances; Z83.6 Family history of other diseases of the respiratory system; Z80.1 Family history of malignant neoplasm of trachea, bronchus and lung; Z88.1 Allergy status to other antibiotic agents
CPT/HCPCS: 36415; 36600; 71045; 80048; 80053; 82550; 82553; 82803; 82962; 83036; 83605; 83735; 83880; 84484; 85025; 85027; 86140; 87040; 87633; 93005; 94640; 94660; 94664; 94760; 96374; 96375; 99285; G0378; J1940; J2930; Q0177; U0002

== ENCOUNTER 2022-04-09 06:24 | Emergency (ER) | payer MEDICARE, OTHER ==
[~2022-04-09 06:24] MED LIST changes: +BREZTRI AEROS10.7 GM INH; +LAMICTAL25 MG PO; +METFORMIN HCL1000 MG PO; +NYSTATIN60 GM TOP; +PROAIR HFA8.5 GM INH
[2022-04-09 06:44] LABS: HEMOGLOBIN 14.5 gm/dl (14.0-17.5); RED BLOOD COUNT 4.92 M/UL (4.20-5.50); WHITE BLOOD COUNT 15.3 K/UL (4.5-11.0)
[2022-04-09 07:04] LABS: BUN/CREATININE RATIO 19 (0-10)
[2022-04-09] MEDS ORDERED: PREDNISONE 20 M20 MG PO (10:37)
[2022-04-09] MEDS ORDERED: IPRAT-ALBUT 0.5-3 ML INH (10:37)
[2022-04-09] MEDS ORDERED: DOXYCYCLINE HY100 M2 PO (10:37)
== END 2022-04-09 11:12 | disposition home or self-care (01) ==
LOC: ER1 06:24
PROVIDERS: Emergency Medicine
DX: J44.0 Chronic obstructive pulmonary disease with (acute) lower respiratory infection (principal); J44.1 Chronic obstructive pulmonary disease with (acute) exacerbation; J18.9 Pneumonia, unspecified organism; R51.9 Headache, unspecified; I11.0 Hypertensive heart disease with heart failure; I50.9 Heart failure, unspecified; E11.9 Type 2 diabetes mellitus without complications; F17.200 Nicotine dependence, unspecified, uncomplicated; Z88.1 Allergy status to other antibiotic agents; Z20.822 Contact with and (suspected) exposure to COVID-19
CPT/HCPCS: 36600; 70450; 71045; 80053; 82550; 82553; 82803; 84484; 85025; 93005; 96374; 96375; 99285; J1885; J2930; U0002

== ENCOUNTER 2022-04-12 04:27 | Observation (INO) | payer MEDICARE, OTHER ==
[~2022-04-12] VITALS: Ht 177.8 cm; Wt 108.9 kg
[~2022-04-12 04:27] MED LIST changes: +DOXYCYCLINE HY100 M2 PO
[2022-04-12 05:48] LABS: HEMOGLOBIN 14.8 gm/dl (14.0-17.5); RED BLOOD COUNT 5.06 M/UL (4.20-5.50); WHITE BLOOD COUNT 18.8 K/UL (4.5-11.0)
[2022-04-12 06:55] LABS: BUN/CREATININE RATIO 24 (0-10)
[2022-04-12] MEDS ORDERED: BUSPIRONE HCL15 MG PO (14:20)
[2022-04-12] MEDS ORDERED: NICODERM CQ1 EAC2 TD (14:21)
[2022-04-12] MEDS ORDERED: SUMATRIPTAN SU100 MG PO (14:22)
[2022-04-13 03:40] LABS: BUN/CREATININE RATIO 28 (0-10)
[2022-04-13 03:58] LABS: HEMOGLOBIN 15.2 gm/dl (14.0-17.5); RED BLOOD COUNT 5.22 M/UL (4.20-5.50); WHITE BLOOD COUNT 17.8 K/UL (4.5-11.0)
[2022-04-13] MEDS ORDERED: LANTUS INS100 UTS/M1 SQ (10:45)
[2022-04-13] MEDS ORDERED: IPRAT-ALBUT 0.5-3 ML INH (10:45)
[2022-04-13] MEDS ORDERED: PULMICORT0.5 MG/21 INH (10:45)
[2022-04-14] MEDS ORDERED: HUMALOG100 UNIT/3 SC (09:07)
[2022-04-14] MEDS ORDERED: PROTONIX 40 MG40 M1 PO (09:56)
[2022-04-14] MEDS ORDERED: ZOFRAN 4 MG TAB4 MG PO (09:56)
[2022-04-14] MEDS ORDERED: TYLENOL325 MG PO (11:24)
[2022-04-14] MEDS ORDERED: DEX4 GLUCOSE4 GM PO (12:58)
== END 2022-04-14 13:45 | disposition home or self-care (01) ==
LOC: ER1 04:27 → CDU 11:14 → M/S 13:16
PROVIDERS: Physician Assistant Medical; Student in an Organized Health Care Education/Training Program; ADMIT Internal Medicine
DX: J44.1 Chronic obstructive pulmonary disease with (acute) exacerbation (principal); E11.65 Type 2 diabetes mellitus with hyperglycemia; D72.828 Other elevated white blood cell count; T38.0X5A Adverse effect of glucocorticoids and synthetic analogues, initial encounter; I11.0 Hypertensive heart disease with heart failure; I50.32 Chronic diastolic (congestive) heart failure; I87.8 Other specified disorders of veins; J96.11 Chronic respiratory failure with hypoxia; E66.2 Morbid (severe) obesity with alveolar hypoventilation; Z68.34 Body mass index [BMI] 34.0-34.9, adult; Z20.822 Contact with and (suspected) exposure to COVID-19; Z91.14 Patient's other noncompliance with medication regimen; Z88.1 Allergy status to other antibiotic agents; Z79.4 Long term (current) use of insulin; Z79.84 Long term (current) use of oral hypoglycemic drugs; Z79.899 Other long term (current) drug therapy; Z87.891 Personal history of nicotine dependence; Z99.81 Dependence on supplemental oxygen
CPT/HCPCS: 36415; 36600; 70490; 71045; 80048; 80053; 82550; 82553; 82803; 82962; 83735; 83880; 84484; 85025; 85027; 93970; 94640; 94664; 94760; 96374; 96376; 99285; G0378; J2920; U0002